=== PATIENT | female | born 1985 | race Caucasian/White ===

== ENCOUNTER 2019-11-14 15:09 | Inpatient (IN) | payer OTHER ==
[~2019-11-14] VITALS: Ht 167.6 cm; Wt 2.3 kg
[2019-11-15] MEDS ORDERED: PRENATAL PO (14:15)
[2019-11-29] MEDS ORDERED: PRENATAL 19 TA1 EACH PO (09:31)
== END 2019-12-01 15:16 | disposition home or self-care (01) | DRG 788 ==
LOC: OB/GYN 11-27 11:15 → O/R 11-28 07:56 → OB/GYN 11-28 11:15
PROVIDERS: ADMIT Obstetrics & Gynecology; ATTEND Obstetrics & Gynecology
PROC: 4A1HXFZ Monitoring of Products of Conception, Cardiac Rhythm, External Approach (ICD-10-PCS; 2019-11-28)
PROC: 10S07ZZ Reposition Products of Conception, Via Natural or Artificial Opening (ICD-10-PCS; 2019-11-28)
PROC: 10D00Z1 Extraction of Products of Conception, Low, Open Approach (ICD-10-PCS; principal; 2019-11-28 07:15)
DX: O30.043 Twin pregnancy, dichorionic/diamniotic, third trimester (principal); O32.8XX2 Maternal care for other malpresentation of fetus, fetus 2; Z3A.38 38 weeks gestation of pregnancy; Z37.2 Twins, both liveborn